=== PATIENT | male | born 1945 | race Two or more races ===

== ENCOUNTER 2018-01-06 11:13 | Inpatient (IN) | payer OTHER, MEDICAID ==
[~2018-01-06] VITALS: Ht 165.1 cm; Wt 102.2 kg
[~2018-01-06 11:13] MED LIST: LISI2.5T47 PO; METF-371 PO; SIMV-8 PO
[2018-01-06] MEDS ORDERED: LEVOFLOXACIN 500MG 100 ML IV ONE (11:45)
[2018-01-06] MEDS ORDERED: SODIUM CHLORIDE 0.9% 500 ML IV ONE (11:45)
[2018-01-06 12:19] LABS: Hematocrit 45.6 % (41.0-53.0); Mean Corpuscular Hemoglobin 29.5 pg (28.0-32.0); Mean Corpuscular Volume 89.4 fL (80.0-100.0); Platelet Count (auto) 279 10^3/uL (140-450); Red Cell Distribution Width 14.7 % (11.8-14.3)
[2018-01-06 12:26] LABS: Albumin 3.7 g/dL (3.4-5.0); BUN/Creatinine Ratio 15.7; Calcium 9.2 mg/dL (8.5-10.1); Potassium 4.8 mmol/L (3.5-5.1)
[2018-01-06 12:27] LABS: Bilirubin, Total 0.5 mg/dL (0.2-1.0); Total Protein 7.7 g/dL (6.4-8.2)
[2018-01-06 12:30] LABS: Basophils % (manual) 0 (0.0-2.0); Eosinophils % (manual) 0 (0-7); Metamyelocytes % 0; Myelocytes % 0; Promyelocytes % 0
[2018-01-06 12:31] LABS: Blast Cells 0; Reactive Lymphocytes 0
[2018-01-06] MEDS ORDERED: cefTRIAXone 1GM/10ml IVPUSH 10 ML IV ONE (13:00)
[2018-01-06] MEDS ORDERED: AZITHROMYCIN 500MG/ 250ML 250 ML IV ONE (13:00)
[2018-01-06] MEDS ORDERED: ONDANSETRON HCL 4 MG/2 ML VIAL IV PRN (13:00)
[2018-01-06] MEDS ORDERED: MORPHINE SULFATE 4 MG/ML SYR/VIAL IV PRN (13:00)
[2018-01-06] MEDS ORDERED: HYDROcodone-ACET 5/325MG TAB PO PRN (13:00)
[2018-01-06] MEDS ORDERED: DEXTROSE (50%) 50ML SYRG IV PRN (13:00)
[2018-01-06] MEDS ORDERED: ACETAMINOPHEN 500 MG TAB PO PRN (13:00)
[2018-01-06] MEDS: SODIUM CHLORIDE 0.9% 1,000 ML IV SCH (13:22)
[2018-01-06 13:23] LABS: Band Neutrophils % (manual) 5; Lymphocytes % (manual) 6 (10.0-50.0); Monocytes % (manual) 4 (0-12)
[2018-01-06 14:00] VITALS: BP 110/75
[2018-01-06] MEDS: InsuLIN REG 1unit/0.01ml Soln (100units/ml) SC SCH ×2 (17:37→21:29)
[2018-01-06] MEDS: ACCU-CHEK COMFORT CURVE STRIP VI SCH ×2 (17:37→21:29)
[2018-01-06] MEDS: ALBUTEROL SULF 2.5 MG/0.5ML(0.5%) NEB SOLN NEB SCH (20:20)
[2018-01-06] MEDS: IPRATROPIUM BROM 0.5 MG/2.5ML INH SOL NEB SCH (20:20)
[2018-01-06 21:41] VITALS: BP_SYST 108; BP_SYST 112; BP_DIAS 63; BP_DIAS 64
[2018-01-07] MEDS: IPRATROPIUM BROM 0.5 MG/2.5ML INH SOL NEB SCH ×4 (00:15→18:24)
[2018-01-07] MEDS: ALBUTEROL SULF 2.5 MG/0.5ML(0.5%) NEB SOLN NEB SCH ×4 (00:15→18:24)
[2018-01-07 05:00] VITALS: BP 111/55
[2018-01-07 05:34] LABS: Basophils # (auto) 0 uL; Basophils % (auto) 0.4 % (0.0-2.0); Eosinophils # (auto) 0.1 uL; Eosinophils % (auto) 1.3 % (0.0-7.0); Hematocrit 41.1 % (41.0-53.0); Hemoglobin 13.7 g/dL (13.5-17.5); Lymphocytes # (auto) 1.9 uL; Lymphocytes % (auto) 16.7 % (10.0-50.0); Mean Corpuscular Hemoglobin 29.9 pg (28.0-32.0); Mean Corpuscular Hgb Conc. 33.3 g/dL (32.0-36.0); Mean Corpuscular Volume 89.6 fL (80.0-100.0); Monocytes # (auto) 0.6 uL; Monocytes % (auto) 5.6 % (0.0-12.0); Neutrophils # (auto) 8.6 uL; Nucleated Red Blood Cells % 0.1 %; Platelet Count (auto) 253 10^3/uL (140-450); Red Blood Cells 4.58 10^6/uL (4.5-5.90); Red Cell Distribution Width 14.9 % (11.8-14.3); White Blood Cell 11.3 10^3/uL (4.4-10.8)
[2018-01-07 05:52] LABS: BUN/Creatinine Ratio 14.3; Calcium 8.3 mg/dL (8.5-10.1); Potassium 4.2 mmol/L (3.5-5.1)
[2018-01-07] MEDS: SODIUM CHLORIDE 0.9% 1,000 ML IV SCH (05:54)
[2018-01-07] MEDS: ACCU-CHEK COMFORT CURVE STRIP VI SCH ×4 (06:28→22:10)
[2018-01-07] MEDS: InsuLIN REG 1unit/0.01ml Soln (100units/ml) SC SCH ×4 (06:28→22:09)
[2018-01-07] MEDS: cefTRIAXone 1GM/10ml IVPUSH 10 ML IV SCH (08:27)
[2018-01-07 09:00] VITALS: BP 130/72
[2018-01-07] MEDS: PANTOPRAZOLE 40 MG TAB PO SCH (09:02)
[2018-01-07] MEDS: AZITHROMYCIN 500MG/ 250ML 250 ML IV SCH (09:02)
[2018-01-07 13:00] VITALS: BP 126/71
[2018-01-07 15:52] LABS: Urine Bacteria NONE SEEN /hpf (None Seen); Urine Blood Negative /uL (Negative); Urine Mucus FEW (None Seen); Urine Specific Gravity 1.021 (1.001-1.035); Urine WBC 1 /hpf (0 - 3)
[2018-01-07 17:00] VITALS: BP 143/82
[2018-01-07 21:37] VITALS: BP 137/72
[2018-01-08 05:00] VITALS: BP 125/62
[2018-01-08 05:50] LABS: Basophils # (auto) 0.1 uL; Basophils % (auto) 0.8 % (0.0-2.0); Eosinophils # (auto) 0.3 uL; Eosinophils % (auto) 3.6 % (0.0-7.0); Hematocrit 39.6 % (41.0-53.0); Hemoglobin 13.3 g/dL (13.5-17.5); Lymphocytes # (auto) 1.6 uL; Lymphocytes % (auto) 21.6 % (10.0-50.0); Mean Corpuscular Hemoglobin 29.9 pg (28.0-32.0); Mean Corpuscular Hgb Conc. 33.5 g/dL (32.0-36.0); Mean Corpuscular Volume 89.2 fL (80.0-100.0); Monocytes # (auto) 0.6 uL; Monocytes % (auto) 7.5 % (0.0-12.0); Neutrophils # (auto) 4.9 uL; Neutrophils % (auto) 66.5 % (37.0-80.0); Nucleated Red Blood Cells % 0.1 %; Platelet Count (auto) 259 10^3/uL (140-450); Red Blood Cells 4.44 10^6/uL (4.5-5.90); Red Cell Distribution Width 14.7 % (11.8-14.3); White Blood Cell 7.4 10^3/uL (4.4-10.8)
[2018-01-08] MEDS: InsuLIN REG 1unit/0.01ml Soln (100units/ml) SC SCH ×2 (06:13→11:30)
[2018-01-08] MEDS: ACCU-CHEK COMFORT CURVE STRIP VI SCH ×2 (06:13→11:50)
[2018-01-08] MEDS: IPRATROPIUM BROM 0.5 MG/2.5ML INH SOL NEB SCH ×3 (07:12→11:33)
[2018-01-08] MEDS: ALBUTEROL SULF 2.5 MG/0.5ML(0.5%) NEB SOLN NEB SCH ×3 (07:12→11:33)
[2018-01-08 08:01] VITALS: BP 121/68
[2018-01-08] MEDS: AZITHROMYCIN 500MG/ 250ML 250 ML IV SCH (10:03)
[2018-01-08] MEDS: cefTRIAXone 1GM/10ml IVPUSH 10 ML IV SCH (10:04)
[2018-01-08] MEDS: PANTOPRAZOLE 40 MG TAB PO SCH (10:04)
[2018-01-08 12:21] VITALS: BP 135/58
== END 2018-01-08 16:18 | disposition home or self-care (01) | DRG 871 ==
LOC: ER 11:13 → OVERFLOW 11:14 → WEST WING 18:35
PROVIDERS: ADMIT Internal Medicine; ATTEND Internal Medicine
DX: A41.9 Sepsis, unspecified organism (principal); J18.9 Pneumonia, unspecified organism; E66.9 Obesity, unspecified; E78.5 Hyperlipidemia, unspecified; E86.0 Dehydration; I10 Essential (primary) hypertension; E11.65 Type 2 diabetes mellitus with hyperglycemia; K43.9 Ventral hernia without obstruction or gangrene; Z87.442 Personal history of urinary calculi; Z68.37 Body mass index [BMI] 37.0-37.9, adult; Z87.11 Personal history of peptic ulcer disease
CPT/HCPCS: 36415; 71046; 80048; 80053; 81001; 82962; 83036; 83605; 85007; 85025; 85027; 87040; 93005; 94640; 94761; 96361; 96374; 96375; J1815; J1956

== ENCOUNTER 2018-10-14 07:51 | Emergency (ER) | payer OTHER, MEDICAID ==
[~2018-10-14] VITALS: Ht 162.6 cm; Wt 95.3 kg
[2018-10-14 08:04] VITALS: BP 141/70
[2018-10-14] MEDS ORDERED: ALBUTEROL SULF 2.5 MG/0.5ML(0.5%) NEB SOLN NEB ONE (08:45)
[2018-10-14] MEDS ORDERED: IPRATROPIUM BROM 0.5 MG/2.5ML INH SOL NEB ONE (08:45)
== END 2018-10-14 08:54 | disposition home or self-care (01) ==
LOC: ER 07:53
DX: J20.9 Acute bronchitis, unspecified (principal); E11.9 Type 2 diabetes mellitus without complications; I10 Essential (primary) hypertension; Z87.11 Personal history of peptic ulcer disease; Z87.442 Personal history of urinary calculi
CPT/HCPCS: 71046; 94640; 99283; J7611; J7644

== ENCOUNTER 2019-06-01 09:01 | Inpatient (IN) | payer OTHER, MEDICAID ==
[~2019-06-01] VITALS: Ht 162.6 cm; Wt 106.3 kg
[~2019-06-01 09:01] MED LIST changes: +METF-370 PO; -METF-371 PO; +NAP500T PO; +TAMS0.4C36 PO
[2019-06-01] MEDS ORDERED: fentaNYL CITRATE 100 MCG/2 ML VL ONE (10:27)
[2019-06-01] MEDS ORDERED: MORPHINE SULF(PF) 0.5MG/ML 10ML VIAL ONE (10:27)
[2019-06-01] MEDS ORDERED: MIDAZOLAM HCL 1MG/1ML-2 ML VIAL ONE ×2 (10:27→11:27)
[2019-06-01] MEDS ORDERED: ceFAZolin 1GM/50ML 100 ML IV ONE (10:50)
[2019-06-01] MEDS ORDERED: TETRACAINE 1% INJ 2 ML VIAL IJ ONE (10:51)
[2019-06-01] MEDS ORDERED: PHENYLEPHRINE HCL 10 MG/ML VL IV ONE (10:56)
[2019-06-01] MEDS ORDERED: DexAMETHasone SOD PHOS 10MG/1ML VIAL INJ IV ONE (10:56)
[2019-06-01] MEDS ORDERED: ePHEDrine SULFATE 50 MG/ML AMP IV PRN (13:15)
[2019-06-01] MEDS ORDERED: HYDROmorphone HCL 2 MG/ML VL IV PRN ×2 (13:15→14:45)
[2019-06-01] MEDS ORDERED: DexAMETHasone SOD PHOS 10MG/1ML VIAL INJ IV PRN (13:15)
[2019-06-01] MEDS ORDERED: NALOXONE HCL 0.4 MG/ML VIAL IV PRN (13:15)
[2019-06-01] MEDS ORDERED: NALBUPHINE HCL 10 MG/1ml INJECTION SUBCUT ONE (13:15)
[2019-06-01] MEDS ORDERED: LABETALOL HCL 5 MG/ML 4ML SYRINGE IV PRN (13:15)
[2019-06-01] MEDS ORDERED: ONDANSETRON HCL 4 MG/2 ML VIAL IV PRN (13:15)
[2019-06-01] MEDS: LACTATED RINGER'S 1,000 ML IV SCH (14:44)
[2019-06-01] MEDS: ceFAZolin 1GM/50ML 50 ML IV SCH ×2 (14:45→20:10)
[2019-06-01] MEDS ORDERED: HYDROcodone-ACET 10/325MG TAB PO PRN (14:45)
[2019-06-01] MEDS ORDERED: ACETAMINOPHEN 325 MG TAB PO PRN (14:45)
[2019-06-01] MEDS ORDERED: TEMAZEPAM 15 MG CAP PO PRN (14:45)
--- NOTE | 2019-06-01 16:49 | NUR ---
Respiratory note: HR 57, RR 14, SPO2 97% ON 2 L NC. FAMILY AND RELATIONS SPECIALIST AT BEDSIDE. PT PLACED ON CONTINUOUS POX. NO SIGNS OR SYMPTOMS OF RESPIRATORY DISTRESS NOTED AT THIS TIME. PT IS SCOTTISH SPEAKING WITH FAMILY MEMBER TRANSLATING. WILL ENDORSE PT CARE TO NOC RT.
[2019-06-01 17:24] VITALS: BP 109/61
[2019-06-01] MEDS ORDERED: LISI-708 PO (18:45)
[2019-06-01] MEDS ORDERED: METF850T PO (18:45)
--- NOTE | 2019-06-01 19:20 | NUR ---
Respiratory note: PT REMAINS ON CONT PULSE OX ORDERED. PULSE OX ALARMS ON AND AUDIBLE, PLUGGED INTO RED OUTLET. SPO2 92-95% ON R/A. 2L NC ON AT BEDSIDE. FAMILY WITH PT, DENY ANY NEEDS AT THIS TIME.
--- NOTE | 2019-06-01 19:43 | NUR ---
Opening Note Assumed pt care from day shift nurse. Pt is a/ox4 with no s/s of distress or SOB. Pt is currently on 2L NC as well as on a continuous pule ox with an oxygen saturation of 97% and above. Pt's dressing is currently saturated with blood. Was told by day shift that Dr Foy is aware of pt's bleeding and has instructed to changes as needed and monitor bleeding. Pt is laying in bed with no complaints and is currently accompanied by family members. Safety measures maintained with call light within reach, bed in lowest position and side rails up. Discussed POC with pt; pt verbalized understanding. Will continue to monitor for changes q1hr and prn.
--- NOTE | 2019-06-01 20:13 | NUR ---
Wound/Incision Care Changed pt's incision dressing. Currently has a moderate amount of blood. Upon assessment, the wound is not actively bleeding, just oozing when pt is more active. The incision appears to be asymptomatic. Applied 4x4 gauze as well as optifoam to dressing for additional drainage reinforcement. Pt tolerated well and reports of no pain. Will continue to monitor for additional and or excessive bleeding. Addendum: 06/01/19 at 8125 by KYLER OAKES RN RN Incision Update No sanguineous drainage noted at this time. Pt denies any pain or discomfort. VS are WNL, 2L NC still on with an O2 saturation of 96%. Will continue to monitor.
[2019-06-01] MEDS: DOCUSATE SOD 100 MG CAP PO SCH (21:51)
[2019-06-01] MEDS: oxyCODONE ER 10 MG TAB PO SCH (21:52)
[2019-06-01] MEDS: SODIUM CHLOR 0.9% PF (SALINE LOCK) 10ML VIAL/SYR IV SCH (21:52)
[2019-06-01 22:00] VITALS: BP 111/61
[2019-06-02] MEDS: KETOROLAC TROMETH 30 MG/ML 1ML VIAL IV PRN ×2 (01:08→15:00)
--- NOTE | 2019-06-02 01:20 | NUR ---
Provided Education on Kumar Catheter Discussed the possibility of discontinuing the kumar catheter with the pt. At this time the pt states that he is not ready to have the catheter removed. Provided education on the importance and benefits of removal; pt verbalized understanding and stated that he wished to d/c it at a later time in the morning.
[2019-06-02] MEDS: diphenhdrAMINE HCL 50 MG/1 ML VL IV PRN ×2 (03:10→09:30)
[2019-06-02] MEDS: ceFAZolin 1GM/50ML 50 ML IV SCH (03:10)
[2019-06-02 04:43] VITALS: BP 98/57
[2019-06-02] MEDS: SODIUM CHLOR 0.9% PF (SALINE LOCK) 10ML VIAL/SYR IV SCH ×2 (06:00→14:00)
[2019-06-02] MEDS: LACTATED RINGER'S 1,000 ML IV SCH (06:00)
--- NOTE | 2019-06-02 06:08 | NUR ---
Pt is Tolerating Fluids Well Pt is tolerating PO fluids well, d/c'ed from IV fluids at this time. Will endorse to day shift.
--- NOTE | 2019-06-02 07:30 | NUR ---
OPENING SHIFT NOTE RECEIVED REPORT FROM [facility] NURSE, ASSUMED CARE OF PATIENT. PATIENT IS A&O X4 WITH NO C/O PAIN OR DISTRESS AT THIS TIME. PATIENT BED IS IN LOW POSITION, BRAKES APPLIED, BED RAILS UP X2, AND CALL LIGHT WITHIN REACH. FAMILY AT BEDSIDE. PATIENT AND FAMILY EDUCATED ON POC AND TO USE CALL LIGHT PRN, PATIENT VERBALIZED UNDERSTANDING. CONTINUING TO MONITOR PATIENT Q1 HR AND PRN
[2019-06-02 08:30] VITALS: BP 91/59
[2019-06-02 09:02] LABS: Hemoglobin 12.2 g/dL (13.5-17.5)
[2019-06-02] MEDS: ENOXAPARIN SOD 40 MG/0.4 ML SYRINGE SC SCH (09:30)
[2019-06-02] MEDS: DOCUSATE SOD 100 MG CAP PO SCH ×2 (09:30→21:54)
[2019-06-02] MEDS: oxyCODONE ER 10 MG TAB PO SCH ×2 (09:30→21:55)
[2019-06-02] MEDS: ONDANSETRON HCL 4 MG/2 ML VIAL IV PRN ×2 (09:30→15:00)
--- NOTE | 2019-06-02 09:45 | NUR ---
Respiratory note: CONTINUOUS POX NOTED TO BE ON AND FUNCTIONAL. ALARMS ARE ON AND AUDIBLE. POX 94%, H75, RR 16. NO SOB NOTED.
[2019-06-02] MEDS ORDERED: DEXTROSE (50%) 50ML SYRG IV PRN (12:45)
[2019-06-02 13:00] VITALS: BP 101/61
--- NOTE | 2019-06-02 13:04 | NUR ---
Kumar catheter dc'd Order to discontinue kumar catheter. Kumar dc'd with clean technique following deflation of balloon. Patient tolerated well with no complaints of pain. Continue care.
--- NOTE | 2019-06-02 14:24 | NUR ---
PATIENT REFUSED LAB REFUSED LABS AT THIS TIME, LAB TO ATTEMPT AGAIN IN AN HOUR
--- NOTE | 2019-06-02 14:25 | NUR ---
PATIENT AT BEDSIDE CHAIR
--- NOTE | 2019-06-02 14:30 | NUR ---
DRESSING CHANGED DRESSING CHANGED PER ORDER, SEROSANGUINEOUS DRAINAGE NOTED.
--- NOTE | 2019-06-02 14:45 | NUR ---
PT NOTIFIED OF NEED FOR CPM
--- NOTE | 2019-06-02 14:50 | NUR ---
patient ambulating with PT
--- NOTE | 2019-06-02 15:39 | NUR ---
ROUNDS PATIENT RESTING IN BED, FAMILY AT BEDSIDE. NO S/S OF DISTRESS NOTED AT THIS TIME, CONTINUING TO MONITOR PATIENT
[2019-06-02 16:08] LABS: Basophils # (auto) 0 uL; Basophils % (auto) 0.3 % (0.0-2.0); Eosinophils # (auto) 0 uL; Eosinophils % (auto) 0.2 % (0.0-7.0); Lymphocytes # (auto) 0.8 uL; Lymphocytes % (auto) 8.7 % (10.0-50.0); Mean Corpuscular Hemoglobin 30.2 pg (28.0-32.0); Mean Corpuscular Hgb Conc. 33.2 g/dL (32.0-36.0); Mean Corpuscular Volume 90.9 fL (80.0-100.0); Monocytes # (auto) 0.9 uL; Monocytes % (auto) 9.7 % (0.0-12.0); Neutrophils # (auto) 7.4 uL; Neutrophils % (auto) 81.1 % (37.0-80.0); Platelet Count (auto) 209 10^3/uL (140-450); Red Blood Cells 3.96 10^6/uL (4.5-5.90); Red Cell Distribution Width 13.4 % (11.8-14.3); White Blood Cell 9.1 10^3/uL (4.4-10.8)
[2019-06-02 16:34] LABS: Potassium 4.4 mmol/L (3.5-5.1)
--- NOTE | 2019-06-02 16:40 | NUR ---
CONTINUOUS PULSE OX REMOVED AND RETURNED TO RESPIRATORY, PATIENT IS OVER 24 HOURS POST OP AND IS SATING 94% ON RA
[2019-06-02 16:48] LABS: BUN/Creatinine Ratio 19.8; Calcium 8.4 mg/dL (8.5-10.1)
[2019-06-02 16:50] LABS: Bilirubin, Total 0.5 mg/dL (0.2-1.0); Total Protein 5.9 g/dL (6.4-8.2)
[2019-06-02] MEDS: ACCU-CHEK COMFORT CURVE STRIP VI SCH ×2 (17:00→21:55)
[2019-06-02] MEDS: InsuLIN REG 1unit/0.01ml Soln (100units/ml) SC SCH ×2 (17:00→21:55)
[2019-06-02 17:24] VITALS: BP 106/59
--- NOTE | 2019-06-02 18:00 | NUR ---
PATIENT ON CPM UNTIL 1929
--- NOTE | 2019-06-02 19:15 | NUR ---
Opening Shift Note Assumed care of patient, awake and alert. No S/S of distress/SOB or pain. Family is present at bedside. Bed is locked and in lowest position with 2x side rails up. Instructed on POC and to call for assist PRN, will continue to monitor for changes Q1hr and PRN.
--- NOTE | 2019-06-02 19:45 | NUR ---
CPM REMOVAL The cpm has been removed from the patient's right leg. Patient tolerated removal well.
[2019-06-02 21:30] VITALS: BP 112/62
--- NOTE | 2019-06-02 22:00 | NUR ---
MEDICATION REFUSAL The patient's blood glucose is 140 mg/dL but the patient refused the insulin. Patient has been educated.
[2019-06-03 05:00] VITALS: BP 114/54
[2019-06-03] MEDS: InsuLIN REG 1unit/0.01ml Soln (100units/ml) SC SCH ×4 (06:03→21:46)
[2019-06-03] MEDS: SODIUM CHLOR 0.9% PF (SALINE LOCK) 10ML VIAL/SYR IV SCH ×3 (06:03→14:00)
[2019-06-03] MEDS: ACCU-CHEK COMFORT CURVE STRIP VI SCH ×4 (06:04→21:47)
[2019-06-03] MEDS: LACTATED RINGER'S 1,000 ML IV SCH (06:49)
[2019-06-03 07:01] LABS: Basophils # (auto) 0.1 uL; Basophils % (auto) 0.5 % (0.0-2.0); Eosinophils # (auto) 0 uL; Eosinophils % (auto) 0.3 % (0.0-7.0); Hematocrit 35.2 % (41.0-53.0); Hemoglobin 11.9 g/dL (13.5-17.5); Lymphocytes % (auto) 10.5 % (10.0-50.0); Mean Corpuscular Hemoglobin 30.7 pg (28.0-32.0); Mean Corpuscular Hgb Conc. 33.8 g/dL (32.0-36.0); Mean Corpuscular Volume 90.9 fL (80.0-100.0); Monocytes # (auto) 0.9 uL; Neutrophils # (auto) 7.9 uL; Neutrophils % (auto) 79.7 % (37.0-80.0); Platelet Count (auto) 205 10^3/uL (140-450); Red Blood Cells 3.88 10^6/uL (4.5-5.90); Red Cell Distribution Width 13.4 % (11.8-14.3); White Blood Cell 9.9 10^3/uL (4.4-10.8)
[2019-06-03 07:13] LABS: Calcium 8.5 mg/dL (8.5-10.1); Potassium 4.4 mmol/L (3.5-5.1)
--- NOTE | 2019-06-03 07:30 | NUR ---
OPENING NOTE The patient is received alert and oriented times four with no SOB or s/s of distress at this time. The patient has a dressing to the right lower extremity s/p total right knee replacement. The patient is resting in bed in the lowest position with call light within reach, will continue to monitor and POC.
[2019-06-03 09:00] VITALS: BP 130/75
[2019-06-03] MEDS: DOCUSATE SOD 100 MG CAP PO SCH ×2 (09:24→21:42)
[2019-06-03] MEDS: oxyCODONE ER 10 MG TAB PO SCH ×2 (09:24→21:46)
[2019-06-03] MEDS: ENOXAPARIN SOD 40 MG/0.4 ML SYRINGE SC SCH (09:25)
--- NOTE | 2019-06-03 09:27 | NUR ---
PT The patient works with PT and ambulates in the hallway.
--- NOTE | 2019-06-03 09:30 | NUR ---
FAMILY BEDSIDE The patient's family is bedside and updated on the patient's POC.
[2019-06-03 13:00] VITALS: BP 145/84
--- NOTE | 2019-06-03 14:00 | NUR ---
PT Patient works with PT and ambulates in the hallway. Dr. Foy was at the nursing station and states that the patient's D/C planning will be initiated tomorrow.
[2019-06-03 17:00] VITALS: BP 141/78
--- NOTE | 2019-06-03 19:25 | NUR ---
Opening Shift Note Assumed care of patient, awake and alert. No S/S of distress/SOB. The patient complains of right knee pain which is exacerbated with movement. The patient requested pain medication. Will treat with PRN pain medication. Family is present at bedside. Instructed on POC and to call for assist PRN, will continue to monitor for changes Q1hr and PRN.
[2019-06-03 21:00] VITALS: BP 142/77
--- NOTE | 2019-06-03 22:00 | NUR ---
MEDICATION REFUSAL Patient refused insulin for his elevated glucose level. The patient was educated about the risk on refusing medication.
[2019-06-04] MEDS: SODIUM CHLOR 0.9% PF (SALINE LOCK) 10ML VIAL/SYR IV SCH ×4 (03:04→23:33)
[2019-06-04] MEDS: LACTATED RINGER'S 1,000 ML IV SCH ×2 (03:04→23:32)
[2019-06-04 04:30] VITALS: BP 135/71
[2019-06-04] MEDS: ACCU-CHEK COMFORT CURVE STRIP VI SCH ×4 (06:57→23:32)
[2019-06-04] MEDS: InsuLIN REG 1unit/0.01ml Soln (100units/ml) SC SCH ×4 (06:57→22:00)
--- NOTE | 2019-06-04 07:20 | NUR ---
Opening Shift Note Assumed care of patient, awake and alert. No S/S of distress/SOB or pain. Instructed on POC and to call for assist PRN, will continue to monitor for changes Q1hr and PRN.
[2019-06-04 08:00] VITALS: BP 138/70
[2019-06-04 09:36] VITALS: BP 138/70
[2019-06-04] MEDS: oxyCODONE ER 10 MG TAB PO SCH ×2 (10:07→22:31)
[2019-06-04] MEDS: DOCUSATE SOD 100 MG CAP PO SCH ×2 (10:07→22:30)
[2019-06-04] MEDS: ENOXAPARIN SOD 40 MG/0.4 ML SYRINGE SC SCH (10:07)
--- NOTE | 2019-06-04 11:00 | NUR ---
Dressing Changed Right knee dressing changed per order. Patient tolerated well.
--- NOTE | 2019-06-04 11:13 | NUR ---
Nutrition Assessment Notes please see attached link for complete assessment Est. Needs ABW (79 kg): 9614-7146 kcal (17-20kcal/kgBW), 79-86 gms pro (1.0-1.1 gms/kgBW). Will continue to monitor pertinent labs and reassess nutrient need prn Addendum: 06/04/19 at [address] Amended: Links added.
[2019-06-04 11:38] VITALS: BP 142/71
--- NOTE | 2019-06-04 15:39 | NUR ---
assessment Patient is a 74 year old male who is alert and oriented. Prior to admission patient lived home with family and functioned with assistance. Patient informed me his PCP is Dr Alaniz. Patient has been admitted for right knee replacement. Patient informed me his fww has already been delivered to his house. Patient will need a CPM and home health PT on discharge. Patient verbalized understanding and agreed to discharge plan home. Addendum: 06/07/19 at 1543 by Caitlin REYNOSO Amended: Links added.
[2019-06-04 16:38] VITALS: BP 139/81
[2019-06-04 20:10] LABS: Basophils # (auto) 0 uL; Basophils % (auto) 0.4 % (0.0-2.0); Eosinophils # (auto) 0.1 uL; Eosinophils % (auto) 1.2 % (0.0-7.0); Hematocrit 31.4 % (41.0-53.0); Hemoglobin 10.6 g/dL (13.5-17.5); Lymphocytes # (auto) 1.1 uL; Lymphocytes % (auto) 14.9 % (10.0-50.0); Mean Corpuscular Hemoglobin 30.4 pg (28.0-32.0); Mean Corpuscular Hgb Conc. 33.6 g/dL (32.0-36.0); Mean Corpuscular Volume 90.3 fL (80.0-100.0); Monocytes # (auto) 0.8 uL; Monocytes % (auto) 10.1 % (0.0-12.0); Neutrophils # (auto) 5.6 uL; Neutrophils % (auto) 73.4 % (37.0-80.0); Nucleated Red Blood Cells % 0.1 %; Platelet Count (auto) 231 10^3/uL (140-450); Red Blood Cells 3.48 10^6/uL (4.5-5.90); Red Cell Distribution Width 13.1 % (11.8-14.3); White Blood Cell 7.6 10^3/uL (4.4-10.8)
[2019-06-04 20:26] LABS: Calcium 8.5 mg/dL (8.5-10.1); Magnesium 1.9 mg/dL (1.6-2.6); Potassium 3.9 mmol/L (3.5-5.1)
[2019-06-04 22:00] VITALS: BP 122/77
[2019-06-05 04:47] VITALS: BP 123/66
[2019-06-05 05:59] LABS: Basophils # (auto) 0 uL; Basophils % (auto) 0.6 % (0.0-2.0); Eosinophils # (auto) 0.2 uL; Eosinophils % (auto) 2.2 % (0.0-7.0); Hematocrit 30.7 % (41.0-53.0); Hemoglobin 10.5 g/dL (13.5-17.5); Lymphocytes # (auto) 1.5 uL; Lymphocytes % (auto) 19.5 % (10.0-50.0); Mean Corpuscular Hemoglobin 30.8 pg (28.0-32.0); Mean Corpuscular Hgb Conc. 34.3 g/dL (32.0-36.0); Mean Corpuscular Volume 89.8 fL (80.0-100.0); Monocytes # (auto) 0.7 uL; Monocytes % (auto) 9.8 % (0.0-12.0); Neutrophils # (auto) 5.1 uL; Neutrophils % (auto) 67.9 % (37.0-80.0); Nucleated Red Blood Cells % 0.4 %; Platelet Count (auto) 229 10^3/uL (140-450); Red Blood Cells 3.42 10^6/uL (4.5-5.90); Red Cell Distribution Width 13.1 % (11.8-14.3); White Blood Cell 7.5 10^3/uL (4.4-10.8)
[2019-06-05 06:19] LABS: BUN/Creatinine Ratio 14.1; Calcium 8.5 mg/dL (8.5-10.1); Magnesium 1.9 mg/dL (1.6-2.6); Potassium 3.8 mmol/L (3.5-5.1)
[2019-06-05] MEDS: InsuLIN REG 1unit/0.01ml Soln (100units/ml) SC SCH (06:44)
[2019-06-05] MEDS: SODIUM CHLOR 0.9% PF (SALINE LOCK) 10ML VIAL/SYR IV SCH (06:44)
[2019-06-05] MEDS: ACCU-CHEK COMFORT CURVE STRIP VI SCH (06:44)
[2019-06-05 08:00] VITALS: BP 133/66
--- NOTE | 2019-06-05 09:30 | NUR ---
SPOKE TO DR STOREY ABOUT THE CPM INFORMED HIM THAT PATIENT NEEDS CPM FOR HOME TO USE 8 HOURS A DAY. HE SAID HE WOULD TAKE CARE OF IT AND HAVE ONE DELIVERED TO THE HOME.
[2019-06-05] MEDS: ENOXAPARIN SOD 40 MG/0.4 ML SYRINGE SC SCH (10:12)
[2019-06-05] MEDS: oxyCODONE ER 10 MG TAB PO SCH (10:12)
[2019-06-05] MEDS: DOCUSATE SOD 100 MG CAP PO SCH (10:12)
--- NOTE | 2019-06-05 10:45 | NUR ---
Discharge instructions given as ordered. Encourage to follow up with PMD as instructed. All questions and concerns addressed. Patient verbalized understanding. Medication reconciliation form completed and copy given to patient. IV removed with catheter intact, pressure dressing applied . Telemetry unit returned to ICU. Patient taken to vehicle via wheelchair with all personal belongings, accompanied by staff and family member. No distress noted at time of departure.
== END 2019-06-05 15:05 | disposition home health service (06) | DRG 470 ==
LOC: SUR 09:01 → TELE-CENTR 09:02
PROVIDERS: ADMIT Orthopaedic Surgery; ATTEND Orthopaedic Surgery
PROC: 0SRC0J9 Replacement of Right Knee Joint with Synthetic Substitute, Cemented, Open Approach (ICD-10-PCS; 2019-06-01)
PROC: 0KNQ0ZZ Release Right Upper Leg Muscle, Open Approach (ICD-10-PCS; 2019-06-01)
PROC: 0MBV0ZZ Excision of Right Lower Extremity Bursa and Ligament, Open Approach (ICD-10-PCS; principal; 2019-06-01 11:01)
DX: M17.11 Unilateral primary osteoarthritis, right knee (principal); Z68.41 Body mass index [BMI] 40.0-44.9, adult; M24.561 Contracture, right knee; M71.561 Other bursitis, not elsewhere classified, right knee; E11.9 Type 2 diabetes mellitus without complications; E66.01 Morbid (severe) obesity due to excess calories; M21.161 Varus deformity, not elsewhere classified, right knee; M67.261 Synovial hypertrophy, not elsewhere classified, right lower leg; M22.41 Chondromalacia patellae, right knee; D21.21 Benign neoplasm of connective and other soft tissue of right lower limb, including hip; M11.261 Other chondrocalcinosis, right knee; Z79.899 Other long term (current) drug therapy
CPT/HCPCS: 36415; 73562; 80048; 80053; 82962; 83735; 85014; 85018; 85025; 94762; 97110; 97116; 97163; 97530; G0378; J0690; J1100; J1885; J2250; J2405

== ENCOUNTER 2019-12-02 07:57 | Emergency (ER) | payer OTHER, MEDICAID ==
[~2019-12-02] VITALS: Ht 162.6 cm; Wt 101.6 kg
[~2019-12-02 07:57] MED LIST changes: +LISI-708 PO; -LISI2.5T47 PO; -METF-370 PO; +METF850T PO
[2019-12-02 08:17] VITALS: BP 152/82
[2019-12-02] MEDS ORDERED: SODIUM CHLORIDE 0.9% 1,000 ML IV ONE (08:31)
[2019-12-02] MEDS ORDERED: KETOROLAC TROMETH 15 mg/ml 1ML VL IV ONE (08:45)
[2019-12-02] MEDS ORDERED: ONDANSETRON HCL 4 MG/2 ML VIAL IV ONE (08:45)
[2019-12-02 09:03] LABS: Urine Bacteria FEW /hpf (None Seen); Urine Blood Negative /uL (Negative); Urine Specific Gravity 1.024 (1.001-1.035); Urine WBC 3 /hpf (0 - 3)
[2019-12-02 09:07] LABS: Basophils # (auto) 0.1 uL; Basophils % (auto) 0.8 % (0.0-2.0); Eosinophils # (auto) 0.3 uL; Hematocrit 47.7 % (41.0-53.0); Hemoglobin 15.8 g/dL (13.5-17.5); Lymphocytes # (auto) 1.3 uL; Lymphocytes % (auto) 20.1 % (10.0-50.0); Mean Corpuscular Hemoglobin 30.1 pg (28.0-32.0); Mean Corpuscular Hgb Conc. 33.2 g/dL (32.0-36.0); Mean Corpuscular Volume 90.7 fL (80.0-100.0); Monocytes # (auto) 0.4 uL; Monocytes % (auto) 7.1 % (0.0-12.0); Neutrophils # (auto) 4.2 uL; Nucleated Red Blood Cells % 0.2 %; Platelet Count (auto) 279 10^3/uL (140-450); Red Blood Cells 5.27 10^6/uL (4.5-5.90); Red Cell Distribution Width 14.6 % (11.8-14.3); White Blood Cell 6.2 10^3/uL (4.4-10.8)
[2019-12-02 09:25] LABS: Albumin 3.8 g/dL (3.4-5.0); Anion Gap 4 (5-15); Blood Urea Nitrogen 13 mg/dL (7-18); Calcium 9.3 mg/dL (8.5-10.1); Carbon Dioxide 29 mmol/L (21-32); Chloride 102 mmol/L (98-107); Glucose 217 mg/dL (74-106); Potassium 4.8 mmol/L (3.5-5.1); Sodium 135 mmol/L (136-145)
[2019-12-02 09:30] LABS: Alanine Aminotransferase 43 U/L (16-61); Alkaline Phosphatase 155 U/L (45-117); Aspartate Aminotransferase 33 U/L (15-37); BUN/Creatinine Ratio 10.8; Bilirubin, Total 0.5 mg/dL (0.2-1.0); GFR African American 76 mL/min; GFR Non-African American 63 mL/min; Total Protein 7.8 g/dL (6.4-8.2)
[2019-12-02] MEDS ORDERED: KETOROLAC TROMETH 30 MG/ML 1ML VIAL ONE (11:57)
== END 2019-12-02 13:05 | disposition home or self-care (01) ==
LOC: ER 07:57
DX: E86.0 Dehydration (principal); N39.0 Urinary tract infection, site not specified; E11.9 Type 2 diabetes mellitus without complications; I10 Essential (primary) hypertension; Z87.442 Personal history of urinary calculi
CPT/HCPCS: 36415; 74176; 80053; 81001; 84484; 85025; 93005; 96361; 96374; 96375; 99285; J1885; J2405; J7030

== ENCOUNTER 2020-01-26 12:38 | Inpatient (IN) | payer OTHER, MEDICAID ==
[~2020-01-26] VITALS: Ht 162.6 cm; Wt 95.8 kg
[2020-01-26] MEDS ORDERED: SODIUM CHLORIDE 0.9% 1,000 ML IVB ONE (13:05)
[2020-01-26 13:27] LABS: Hematocrit 47.9 % (41.0-53.0); Hemoglobin 16.1 g/dL (13.5-17.5); Mean Corpuscular Hemoglobin 29.8 pg (28.0-32.0); Mean Corpuscular Hgb Conc. 33.6 g/dL (32.0-36.0); Mean Corpuscular Volume 88.5 fL (80.0-100.0); Platelet Count (auto) 171 10^3/uL (140-450); Red Blood Cells 5.42 10^6/uL (4.5-5.90); Red Cell Distribution Width 13.1 % (11.8-14.3); White Blood Cell 14.1 10^3/uL (4.4-10.8)
[2020-01-26 13:30] LABS: Basophils % (manual) 0 (0.0-2.0); Blast Cells 0; Promyelocytes % 0; Reactive Lymphocytes 0
[2020-01-26 13:34] LABS: Albumin 3.2 g/dL (3.4-5.0); Anion Gap 12 (5-15); Blood Urea Nitrogen 21 mg/dL (7-18); Calcium 10.3 mg/dL (8.5-10.1); Carbon Dioxide 25 mmol/L (21-32); Chloride 96 mmol/L (98-107); Glucose 131 mg/dL (74-106); Potassium 4.9 mmol/L (3.5-5.1); Sodium 133 mmol/L (136-145)
[2020-01-26 13:40] LABS: Alanine Aminotransferase 107 U/L (16-61); Alkaline Phosphatase 308 U/L (45-117); Aspartate Aminotransferase 237 U/L (15-37); BUN/Creatinine Ratio 12.2; Bilirubin, Total 0.7 mg/dL (0.2-1.0); GFR African American 50 mL/min; GFR Non-African American 42 mL/min; Total Protein 8.1 g/dL (6.4-8.2)
[2020-01-26 13:48] LABS: Band Neutrophils % (manual) 9; Eosinophils % (manual) 1 (0-7); Lymphocytes % (manual) 23 (10.0-50.0); Metamyelocytes % 4; Monocytes % (manual) 15 (0-12); Myelocytes % 4
[2020-01-26] MEDS ORDERED: DEXTROSE (50%) 50ML SYRG IV PRN (17:45)
[2020-01-26] MEDS ORDERED: NITROGLYCERIN 0.4 MG SL TAB SL PRN (17:45)
[2020-01-26] MEDS ORDERED: MORPHINE SULF INJ 2 MG/ML SYRINGE 1ML IV PRN (17:45)
[2020-01-26] MEDS ORDERED: ONDANSETRON HCL 4 MG/2 ML VIAL IV PRN (17:45)
[2020-01-26] MEDS: InsuLIN REG 1unit/0.01ml Soln (100units/ml) SC SCH ×2 (18:00→23:29)
[2020-01-26] MEDS: ACCU-CHEK COMFORT CURVE STRIP VI SCH ×2 (18:15→23:29)
[2020-01-26] MEDS: SODIUM CHLORIDE 0.9% 1,000 ML IV SCH (18:16)
--- NOTE | 2020-01-26 18:45 | NUR ---
MS admit from ER [facility] admitted to tele/MS after SBAR received. Patient oriented to MACY LOWE RN primary RN, unit, room, bed, and unit policies regarding patient care and visiting hours. Patient is awake, alert and oriented x4. Patient is on room air, respirations even and unlabored. Patient denies pain at this time. Bed in low and locked position, call light within reach. Will continue to monitor Q1 hour and PRN.
[2020-01-26 18:55] LABS: Urine Bacteria NONE SEEN /hpf (None Seen); Urine Blood Negative /uL (Negative); Urine Hyaline Cast FEW /lpf (0 - 2); Urine Specific Gravity 1.015 (1.001-1.035); Urine WBC 1 /hpf (0 - 3)
--- NOTE | 2020-01-26 19:07 | NUR ---
Closing Note Report given to retail shift manager RN. No signs or symptoms of distress noted at this time.
[2020-01-26 19:20] VITALS: BP 137/77
--- NOTE | 2020-01-26 19:20 | NUR ---
OPENING NOTE pt A&Ox4, and is georgian speaking. pt is ambulatory. respirations are even and non labored on room air. pt denies pain at this time, will continue to monitor. bed in low locked position, call light within reach.
[2020-01-26 19:49] LABS: INR 1.14 (0.9-1.15); Partial Thromboplastin Time 31.2 sec (23.64-32.05)
[2020-01-26 20:00] VITALS: BP 126/61
[2020-01-26] MEDS ORDERED: PNEUMOCOCCAL VACC POLYS 25 MCG/0.5 ML VIAL IM ONE (20:00)
[2020-01-26] MEDS ORDERED: INFLUENZA QUAD 2019-2020 0.5ml SYRG IM ONE (20:00)
[2020-01-26] MEDS ORDERED: ATOR20TA PO (20:02)
[2020-01-26 22:00] VITALS: BP 126/61
--- NOTE | 2020-01-27 04:10 | NUR ---
Assumed care of patient Patient is sleeping in bed with no S/S of distress. Will continue to monitor.
[2020-01-27] MEDS: SODIUM CHLORIDE 0.9% 1,000 ML IV SCH ×3 (04:36→23:40)
[2020-01-27 05:00] VITALS: BP 154/86
[2020-01-27] MEDS: InsuLIN REG 1unit/0.01ml Soln (100units/ml) SC SCH ×4 (05:51→23:52)
[2020-01-27] MEDS: ACCU-CHEK COMFORT CURVE STRIP VI SCH ×4 (05:52→23:51)
[2020-01-27 07:05] LABS: Hematocrit 41.3 % (41.0-53.0); Hemoglobin 14.2 g/dL (13.5-17.5); Mean Corpuscular Hemoglobin 30.2 pg (28.0-32.0); Mean Corpuscular Hgb Conc. 34.4 g/dL (32.0-36.0); Platelet Count (auto) 109 10^3/uL (140-450); Red Blood Cells 4.69 10^6/uL (4.5-5.90); White Blood Cell 9.7 10^3/uL (4.4-10.8)
[2020-01-27 07:11] LABS: Blast Cells 0; Promyelocytes % 0; Reactive Lymphocytes 0
[2020-01-27 07:28] LABS: Albumin 2.7 g/dL (3.4-5.0); BUN/Creatinine Ratio 12.4; Calcium 9.4 mg/dL (8.5-10.1); Potassium 4.4 mmol/L (3.5-5.1)
[2020-01-27 07:31] LABS: Bilirubin, Total 2.8 mg/dL (0.2-1.0); Total Protein 6.4 g/dL (6.4-8.2)
[2020-01-27 07:58] LABS: Band Neutrophils % (manual) 5; Basophils % (manual) 1 (0.0-2.0); Eosinophils % (manual) 3 (0-7); Lymphocytes % (manual) 21 (10.0-50.0); Metamyelocytes % 1; Monocytes % (manual) 11 (0-12); Myelocytes % 3
--- NOTE | 2020-01-27 08:17 | NUR ---
PER EDGAR HAHN NO RADIOLOGIST TODAY FOR PROCEDURE. WILL DO TOMORROW.
[2020-01-27 09:00] VITALS: BP 133/79
--- NOTE | 2020-01-27 09:00 | NUR ---
SPOKE TO TIMO HERNÁNDEZ. WILL KEEP NPO AFTER MIDNIGHT AND DO BIOPSY IN AM TOMORROW.
--- NOTE | 2020-01-27 09:17 | NUR ---
RAMANDEEP VAUGHAN REGARDING PATIENTS BIOPSY MOVED UNTIL TOMORROW. STATED PATIENT CAN BE STARTED ON CLEAR LIQUID AND THEN NPO AT MIDNIGHT.
[2020-01-27 13:00] VITALS: BP 142/76
[2020-01-27 17:00] VITALS: BP 150/74
[2020-01-27 20:00] VITALS: BP 144/73
--- NOTE | 2020-01-27 20:00 | NUR ---
Opening Shift Note Assumed care of patient, awake and alert. No S/S of distress/SOB or pain. Instructed on POC and to call for assist PRN, will continue to monitor for changes Q1hr and PRN.
[2020-01-27 22:00] VITALS: BP 144/73
[2020-01-28 05:21] VITALS: BP 143/76
[2020-01-28] MEDS: InsuLIN REG 1unit/0.01ml Soln (100units/ml) SC SCH ×2 (06:00→12:00)
[2020-01-28] MEDS: ACCU-CHEK COMFORT CURVE STRIP VI SCH ×2 (06:15→12:00)
--- NOTE | 2020-01-28 07:15 | NUR ---
OPENING SHIFT NOTE Assumed care patient currently sleeping, no s/s of distress or SOB noted at this time. Patient on room air. Bed in low position, locked, call light with in reach, side rails x2 up. Will continue care.
[2020-01-28 09:00] VITALS: BP 145/71
[2020-01-28] MEDS ORDERED: MIDAZOLAM HCL 1MG/1ML-2 ML VIAL IV ONE (10:00)
[2020-01-28] MEDS ORDERED: fentaNYL CITRATE 100 MCG/2 ML VL IV ONE (10:00)
--- NOTE | 2020-01-28 10:05 | NUR ---
Pt off unit Pt off unit down to radiology.
[2020-01-28] MEDS ORDERED: GELATIN 1 SPONGE SIZE 50 TOP ONE (10:23)
[2020-01-28] MEDS ORDERED: LIDOCAINE 2%HCL (LOCAL ANESTH.) INJ 20ML MDV ONE (10:23)
[2020-01-28] MEDS ORDERED: ONDA-144 PO (12:23)
[2020-01-28] MEDS: SODIUM CHLORIDE 0.9% 1,000 ML IV SCH (12:30)
--- NOTE | 2020-01-28 12:41 | NUR ---
I faxed home health order/follow up appointment request to [facility].
[2020-01-28 13:00] VITALS: BP 139/85
--- NOTE | 2020-01-28 14:00 | NUR ---
Discharge paused MD paged regarding missing discharge diagnosis on discharge order. Awaiting call back.
--- NOTE | 2020-01-28 14:38 | NUR ---
I spoke with [facility] Cook Chili Livier regarding home health order, she said [facility] has accepted the patient and service will start within 24-48 hours. She is also taking care of arranging the PCP appointment and will contact patient.
[2020-01-28 15:31] VITALS: BP 139/85
[2020-01-28] MEDS ORDERED: INFLUENZA QUAD 2019-2020 0.5ml SYRG IM ONE (15:48)
--- NOTE | 2020-01-28 16:47 | NUR ---
Discharge instructions given as ordered. Encourage to follow up with PMD as instructed. All questions and concerns addressed. Prescription information given to patient and pickup information at preferred pharmacy provided. Patient verbalized understanding. Pneumonia and FLU vaccines given. IV removed with catheter intact, pressure dressing applied. Patient taken to vehicle via wheelchair with all personal belongings, accompanied by staff. No distress noted at time of departure.
== END 2020-01-28 16:47 | disposition home health service (06) | DRG 424 ==
LOC: ER 12:38 → OVERFLOW 12:39 → CENTRAL 18:35
PROVIDERS: ADMIT Hospitalist; ATTEND Hospitalist
PROC: 07BD3ZX Excision of Aortic Lymphatic, Percutaneous Approach, Diagnostic (ICD-10-PCS; principal; 2020-01-28)
DX: K86.9 Disease of pancreas, unspecified (principal); N17.9 Acute kidney failure, unspecified; R63.0 Anorexia; E11.9 Type 2 diabetes mellitus without complications; N40.0 Benign prostatic hyperplasia without lower urinary tract symptoms; I10 Essential (primary) hypertension; E78.5 Hyperlipidemia, unspecified; R63.4 Abnormal weight loss; Z79.899 Other long term (current) drug therapy; Z79.84 Long term (current) use of oral hypoglycemic drugs; Z87.11 Personal history of peptic ulcer disease; Z83.3 Family history of diabetes mellitus; Z82.49 Family history of ischemic heart disease and other diseases of the circulatory system; Z84.1 Family history of disorders of kidney and ureter; Z81.8 Family history of other mental and behavioral disorders; Z82.61 Family history of arthritis; Z82.5 Family history of asthma and other chronic lower respiratory diseases; Z83.2 Family history of diseases of the blood and blood-forming organs and certain disorders involving the immune mechanism; Z68.36 Body mass index [BMI] 36.0-36.9, adult; Z80.3 Family history of malignant neoplasm of breast; Z80.1 Family history of malignant neoplasm of trachea, bronchus and lung; Z80.41 Family history of malignant neoplasm of ovary; Z80.42 Family history of malignant neoplasm of prostate; Z80.9 Family history of malignant neoplasm, unspecified; Z82.3 Family history of stroke; Z82.62 Family history of osteoporosis; Z83.42 Family history of familial hypercholesterolemia; Z83.511 Family history of glaucoma; Z23 Encounter for immunization
CPT/HCPCS: 10022; 36415; 70450; 71045; 74150; 74176; 76705; 77012; 80053; 81001; 82962; 83036; 83690; 83735; 83880; 84484; 85007; 85027; 85610; 85730; 93005; 96360; 96361; 99291; G0378; J2250